=== PATIENT | male | born 1965 | race African-American/Black ===

== ENCOUNTER 2018-01-25 23:22 | Emergency (ER) | payer MEDICAID, OTHER ==
[~2018-01-25] VITALS: Ht 180.3 cm; Wt 100.0 kg
[2018-01-26 02:48] VITALS: BP 131/78
== END 2018-01-26 02:49 | disposition home or self-care (01) ==
LOC: ER 23:22
DX: Z77.21 Contact with and (suspected) exposure to potentially hazardous body fluids (principal)
CPT/HCPCS: 99281

== ENCOUNTER 2018-06-17 05:52 | Emergency (ER) | payer SELFPAY ==
[~2018-06-17] VITALS: Ht 180.3 cm; Wt 100.0 kg
[2018-06-17 07:37] LABS: BASOPHILS % 0.9 % (0.0-2.0); EOSINOPHILS % 3.3 % (0.0-5.0); HEMATOCRIT. 44.9 % (42.0-52.0); HEMOGLOBIN. 15.4 g/dL (14.0-18.0); LYMPHOCYTES % 15.4 % (20.0-50.0); MEAN CORPUSCULAR HEMOGLOBIN 32.4 pg (28.0-32.0); MEAN CORPUSCULAR VOLUME 94.4 fL (80.0-94.0); MEAN PLATELET VOLUME 8.4 fl (7.4-10.4); NEUTROPHILS % 73.4 % (40.0-76.0); PLATELET 222 x1000/uL (130-400); RED BLOOD CELL COUNT 4.75 mill/uL (4.7-6.1); RED CELL DISTRIBUTION WIDTH 13.5 % (11.6-14.6)
[2018-06-17 07:43] LABS: CHLORIDE 104 mEq/L (98-107)
[2018-06-17 08:04] LABS: CLARITY URINE CLEAR (CLEAR); COLOR URINE YELLOW (YELLOW); KETONES URINE NEGATIVE (NEGATIVE); LEUKOCYTE ESTERASE URINE NEGATIVE (NEGATIVE); NITRITE URINE NEGATIVE (NEGATIVE); OCCULT BLOOD URINE NEGATIVE (NEGATIVE); PH URINE 7.5 (4.5-8.0); PROTEIN URINE NEGATIVE (NEGATIVE); SPECIFIC GRAVITY URINE 1.019 (1.005-1.030); UROBILINOGEN URINE 0.2 E.U./dL (0.2-1.0)
[2018-06-17 09:39] VITALS: BP 171/82
== END 2018-06-17 09:41 | disposition home or self-care (01) ==
LOC: EDUNIT# 05:52 → ER 05:52
DX: R10.33 Periumbilical pain (principal); I10 Essential (primary) hypertension; F17.200 Nicotine dependence, unspecified, uncomplicated; Z98.890 Other specified postprocedural states
CPT/HCPCS: 36415; 74176; 99284

== ENCOUNTER 2022-05-10 04:23 | Emergency (ER) | payer BC, OTHER ==
[~2022-05-10] VITALS: Ht 180.3 cm; Wt 102.4 kg
[2022-05-10] MEDS ORDERED: AMOX-494 MT (06:47)
[2022-05-10] MEDS ORDERED: CARB15DR63 EACH EAR (06:47)
[2022-05-10 07:10] VITALS: BP 118/78
== END 2022-05-10 07:14 | disposition home or self-care (01) ==
LOC: ER 04:23
DX: H66.93 Otitis media, unspecified, bilateral (principal); H61.23 Impacted cerumen, bilateral; I10 Essential (primary) hypertension
CPT/HCPCS: 99283

== ENCOUNTER 2022-12-24 11:00 | Emergency (ER) | payer BC, MEDICAID ==
[~2022-12-24] VITALS: Ht 180.3 cm; Wt 9037.0 kg
[~2022-12-24 11:00] MED LIST: AMOX-494 MT; CARB15DR63 EACH EAR
[2022-12-24 11:20] VITALS: BP 188/99
[2022-12-24] MEDS ORDERED: TETRACAINE 0.5% OPHTH DROPS 4ML LEFTEYE ONE (13:00)
[2022-12-24] MEDS ORDERED: FLUORESCEIN SODIUM 1MG/STRIP LEFTEYE ONE (13:45)
== END 2022-12-24 14:43 | disposition home or self-care (01) ==
LOC: ER 11:10
DX: H57.11 Ocular pain, right eye (principal); I10 Essential (primary) hypertension
CPT/HCPCS: 99283